=== PATIENT | female | born 1985 | race Caucasian/White ===

== ENCOUNTER 2016-04-17 16:31 | Emergency (ER) | payer OTHER ==
[~2016-04-17] VITALS: Ht 157.5 cm; Wt 116.6 kg
[2016-04-17 16:50] VITALS: BP 120/90
[2016-04-17] MEDS ORDERED: IBUP-1007 PO (17:13)
--- NOTE | 2016-04-17 17:13 | PHYS DOC ---
Past Medical History Past Medical History: Asthma Additional Past Medical Histor: poor dental care Past Surgical History: No Surgical History Smoking: Less than 1pk/day Alcohol Use: None Drug Use: None Adult General Chief Complaint Chief Complaint: WRIST PAIN HPI HPI Patient is a 31 year old female who presents with right wrist pain starting yesterday. She reports that she was carrying a box of books and the right wrist was pinned between the box and the wall. She denies numbness or tingling in the fingers. She does not have a PCP. Review of Systems Review of Systems Constitutional: Denies fever or chills. [] Musculoskeletal: Reports right wrist pain. Integument: Denies rash or skin lesions. [] Neurologic: Denies focal weakness or sensory changes. [] Allergies Allergies Allergies Coded Allergies Type Severity Reaction Last Updated Verified No Known Drug Allergies 08/06/14 No Physical Exam Physical Exam Constitutional: Well developed, well nourished, no acute distress, non-toxic appearance. [] HENT: Normocephalic, atraumatic, oropharynx moist. [] Eyes: PERRLA, EOMI, conjunctiva normal, no discharge. [] Skin: Warm, dry, no erythema, no rash. There is no laceration, abrasion, ecchymosis, or other external signs of trauma. Extremities: Right distal radius and ulna tenderness, ROM intact, no edema. 2+ radial and ulnar pulses. Less than 2 second capillary refill in the fingers distally. Light touch sensation intact in the fingers distally. There is no snuffbox tenderness. Neurologic: Alert and oriented X 3, normal motor function, normal sensory function, no focal deficits noted. [] Psychologic: Affect normal, judgement normal, mood normal. [] Current Patient Data Vital Signs Vital Signs Date Time Temp Pulse Resp B/P Pulse Ox O2 Delivery O2 Flow Rate FiO2 04/17/16 16:50 98.2 86 16 98 Room Air 98.2 EKG EKG [] Radiology/Procedures Radiology/Procedures X-ray of the right wrist reviewed and interpreted by myself with Dr. Stern. There are no acute fractures or dislocations. Course & Med Decision Making Course & Med Decision Making Pertinent Labs and Imaging studies reviewed. (See chart for details) Patient presents with right wrist pain starting yesterday. On exam, she has tenderness in the wrist without snuffbox tenderness. She is neurovascularly intact without evidence of compartment syndrome. X-ray does not show any acute fractures or dislocations. She is provided with a Velcro wrist splint prior to discharge. She is discharged home with prescription for ibuprofen 600 mg. She is given contact information for orthopedics for follow-up. Return precautions were discussed. She verbalizes understanding and agrees with plan. Dragon Disclaimer Dragon Disclaimer This electronic medical record was generated, in whole or in part, using a voice recognition dictation system. Departure Departure Impression: Primary Impression: Contusion of wrist, right Disposition: HOME, SELF-CARE Condition: STABLE Referrals: KATJA ODONNELL MD Patient Instructions: Wrist Pain, [id number] Additional Instructions: Your xray did not show any broken bones. Please wear the provided wrist splint as needed for comfort. Please take the prescribed medication as directed. Please follow up with the orthopedic doctor listed below if your pain continues. Return to the emergency department if you have any new or concerning symptoms. Scripts Ibuprofen 600 Mg Heqlas610 Mg PO PRN Q6HRS PRN INFLAMMATION #20 TAB Prov:YOUSUF REYES 04/17/16 YOUSUF REYES Apr 17, 2016 17:13
--- NOTE | 2016-04-18 08:45 | RAD ---
Right wrist, 2 views, 04/17/2016: History: Injury, wrist pain No fracture or dislocation is identified. There is moderate soft tissue swelling about the wrist. IMPRESSION: No acute bony abnormality is detected.
== END 2016-04-17 17:19 | disposition home or self-care (01) ==
LOC: ER 16:31
DX: S60.211A Contusion of right wrist, initial encounter (principal); J45.909 Unspecified asthma, uncomplicated; F17.200 Nicotine dependence, unspecified, uncomplicated; W22.8XXA Striking against or struck by other objects, initial encounter; Y93.89 Activity, other specified; Y92.89 Other specified places as the place of occurrence of the external cause; Y99.8 Other external cause status
CPT/HCPCS: 29125; 73100; 99284-25

== ENCOUNTER 2016-07-10 00:05 | Emergency (ER) | payer OTHER ==
[~2016-07-10 00:05] MED LIST: IBUP-1007 PO
--- NOTE | 2016-07-10 00:17 | PHYS DOC ---
Past Medical History Past Medical History: Asthma Additional Past Medical Histor: poor dental care Past Surgical History: No Surgical History Alcohol Use: None Drug Use: None Adult General Chief Complaint Chief Complaint: ANKLE PROBLEM HPI HPI Patient is a 31 year old female presents emergency department stating that she was trying to help with some family members night when she went to step out of the truck and twisted her left ankle. She states that this happened around 5: 00. She states she's been able to ambulate on the foot although she does have increased pain and discomfort. She has not taken anything for pain. She denies any knee pain or discomfort. Peripheral pulses are 2+ cap refill brisk less than 2 seconds. Review of Systems Review of Systems Constitutional: Denies fever or chills [] Eyes: Denies change in visual acuity, redness, or eye pain [] HENT: Denies nasal congestion or sore throat [] Respiratory: Denies cough or shortness of breath [] Cardiovascular: No additional information not addressed in HPI [] GI: Denies abdominal pain, nausea, vomiting, bloody stools or diarrhea [] : Denies dysuria or hematuria [] Musculoskeletal: Denies back pain. C/o left ankle pain and discomfort Integument: Denies rash or skin lesions [] Neurologic: Denies headache, focal weakness or sensory changes [] Endocrine: Denies polyuria or polydipsia [] Current Medications Current Medications Current Medications Medications (Trade) Dose Ordered Sig/[facility] Start Time Stop Time Status Last Admin Dose Admin Ibuprofen (Motrin) 800 mg 1X ONCE 07/10/16 00:30 07/10/16 00:31 Allergies Allergies Allergies Coded Allergies Type Severity Reaction Last Updated Verified No Known Drug Allergies 08/06/14 No Physical Exam Physical Exam Constitutional: Well developed, well nourished, no acute distress, non-toxic appearance. [] HENT: Normocephalic, atraumatic, bilateral external ears normal, oropharynx moist, no oral exudates, nose normal. [] Eyes: PERRLA, EOMI, conjunctiva normal, no discharge. [] Neck: Normal range of motion, no tenderness, supple, no stridor. [] Cardiovascular:Heart rate regular rhythm Lungs & Thorax: no respiratory distress Skin: Warm, dry, no erythema, no rash. [] Back: No tenderness Extremities: Left lateral ankle tenderness, no cyanosis, no clubbing, ROM intact , no edema. Full pulses 2+ cap refill brisk less than 2 seconds. Patient able to move her toes without difficulty. Neurologic: Alert and oriented X 3, normal motor function, normal sensory function, no focal deficits noted. [] Psychologic: Affect normal, judgement normal, mood normal. [] Current Patient Data Vital Signs Vital Signs Date Time Temp Pulse Resp B/P Pulse Ox O2 Delivery O2 Flow Rate FiO2 07/10/16 00:20 97.9 90 16 100 Room Air 97.9 EKG EKG [] Radiology/Procedures Radiology/Procedures [] Course & Med Decision Making Course & Med Decision Making Pertinent Labs and Imaging studies reviewed. (See chart for details) X-rays were negative for any fractures or bony abnormalities per . She will be discharged home with recommendations for ice packs and elevation as much as possible. She'll be provided with an Aries wrap in which she was recommended to wear for the next 5-7 days and Air-Stirrup splint for the next 7- 10 days. She is provided with orthopedic name and number to follow up with. Signs symptoms to return back to emergency department been provided. Recommended Tylenol and ibuprofen for pain and discomfort. Also instructed patient when taking ibuprofen to take this with food as it may cause GI upset. If this should occur stopped taking the medication. Patient agrees with discharge instructions treatment regimens and follow-up are conditions. [] Dragon Disclaimer Dragon Disclaimer This electronic medical record was generated, in whole or in part, using a voice recognition dictation system. Departure Departure Impression: Primary Impression: Left ankle sprain Disposition: 01 HOME, SELF-CARE Condition: STABLE Referrals: NO PCP (PCP) MICHELLE CHAIREZ MD Patient Instructions: Ankle Sprain, [id number] Additional Instructions: Your ankle x-rays were negative for any bony abnormalities. Tylenol or ibuprofen for pain and discomfort. When taking ibuprofen please take with food to prevent stomach upset. If he did develop an upset stomach please stop taking ibuprofen. Ice packs on 20 minutes off 20 minutes several times a day. Elevation as much as possible. Wear the Aries wrap for the next 5-7 days. With the Air-Stirrup splint for the next 7-10 days. Follow-up with orthopedic in the next 7-10 days. Return back to emergency prior signs symptoms of become worse. JEN HOLLINS BACKBREAKER Jul 10, 2016 00:17
[2016-07-10 00:20] VITALS: BP 103/58
[2016-07-10] MEDS ORDERED: IBUPROFEN 800 MG TABLET. PO ONE (00:30)
--- NOTE | 2016-07-10 08:10 | RAD ---
ANKLE LEFT 3V Clinical Indication: left ankle pain after twisting injury Comparison: None. Technique: Frontal, oblique and lateral views of the left ankle are obtained. Findings: No acute fracture or dislocation is seen. Ankle mortise is maintained. Surrounding soft tissues demonstrate no acute finding. IMPRESSION: No acute osseous injury seen.
== END 2016-07-10 00:36 | disposition home or self-care (01) ==
LOC: ER 00:05
DX: S93.402A Sprain of unspecified ligament of left ankle, initial encounter (principal); J45.909 Unspecified asthma, uncomplicated; X50.0XXA Overexertion from strenuous movement or load, initial encounter; Y93.89 Activity, other specified; Y92.89 Other specified places as the place of occurrence of the external cause; Y99.8 Other external cause status
CPT/HCPCS: 73610; 99284

== ENCOUNTER 2017-08-15 20:09 | Emergency (ER) | payer OTHER | END 2017-08-15 20:46 | disposition home or self-care (01) | LOC: ER 20:09 | DX: S83.92XA Sprain of unspecified site of left knee, initial encounter (principal); J45.909 Unspecified asthma, uncomplicated; X50.1XXA Overexertion from prolonged static or awkward postures, initial encounter; Y93.89 Activity, other specified; Y92.89 Other specified places as the place of occurrence of the external cause; Y99.8 Other external cause status | CPT/HCPCS: 99282; 99283 ==

== ENCOUNTER 2019-07-16 20:46 | Emergency (ER) | payer OTHER ==
[~2019-07-16] VITALS: Ht 157.5 cm; Wt 210.0 kg
[~2019-07-16 20:46] MED LIST changes: +NAPR-514 PO
[2019-07-16 20:54] VITALS: BP 126/66
--- NOTE | 2019-07-16 21:33 | RAD ---
ANKLE LEFT 3V 07/16/2019 9:01 PM INDICATION: Left ankle pain COMPARISON: 07/10/2016. TECHNIQUE: 3 views the left ankle are provided. FINDINGS/ IMPRESSION: There is no acute fracture or dislocation. Joint spaces are maintained. Bone mineralization is within normal limits. Regional soft tissues are within normal limits. There is no soft tissue gas or osseous erosion. No radiopaque foreign body. Electronically signed by: Kaley Damon MD (07/16/2019 9:30 PM) SANDRA
[2019-07-16] MEDS ORDERED: DICL50TA4 PO (21:37)
--- NOTE | 2019-07-16 21:37 | PHYS DOC ---
Past Medical History Past Medical History: Asthma, Other Additional Past Medical Histor: poor dental care Past Surgical History: Tubal ligation Smoking Status: Former Smoker Alcohol Use: None Drug Use: None General Adult EDM: Chief Complaint: ANKLE PROBLEM HPI: HPI: Patient is a 34 year old female who presents with complaint of left ankle pain after twisting her ankle at home a couple of hours ago. Patient states that she now has significant pain with weightbearing, rating it at an 8 out of 10. She denies any other injuries.[] Review of Systems: Review of Systems: Constitutional: Denies fever or chills. [] Respiratory: Denies cough or shortness of breath. [] Cardiovascular: Denies chest pain or edema. [] Musculoskeletal: Positive left ankle pain. [] Integument: Denies rash. [] Neurologic: Denies headache, focal weakness or sensory changes. [] Heart Score: Risk Factors: Risk Factors: DM, Current or recent (<one month) smoker, HTN, HLP, family history of CAD, obesity. Risk Scores: Score 0 - 3: 2.5% MACE over next 6 weeks - Discharge Home Score 4 - 6: 20.3% MACE over next 6 weeks - Admit for Clinical Observation Score 7 - 10: 72.7% MACE over next 6 weeks - Early Invasive Strategies Allergies: Allergies: Allergies Coded Allergies Type Severity Reaction Last Updated Verified No Known Drug Allergies 08/06/14 No Physical Exam: PE: Constitutional: Well developed, well nourished, no acute distress, non-toxic appearance. [] Cardiovascular: Regular rate and rhythm[] Lungs & Thorax: Bilateral breath sounds clear to auscultation [] Skin: Warm, dry, no erythema, no rash. [] Extremities: Examination of left ankle demonstrates minimal soft tissue swelling around the lateral malleolus with tenderness to palpation over lateral malleolus as well as along the course of the posterior talofibular ligament. [] Current Patient Data: Vital Signs: Vital Signs Date Time Temp Pulse Resp B/P (MAP) Pulse Ox O2 Delivery O2 Flow Rate FiO2 07/16/19 20:54 98.7 116 16 126/66 (86) 97 98.7 EKG: EKG: [] Radiology/Procedures: Radiology/Procedures: [] Impression: PROCEDURE: ANKLE LEFT 3V ANKLE LEFT 3V 07/16/2019 9:01 PM INDICATION: Left ankle pain COMPARISON: 07/10/2016. TECHNIQUE: 3 views the left ankle are provided. FINDINGS/ IMPRESSION: There is no acute fracture or dislocation. Joint spaces are maintained. Bone mineralization is within normal limits. Regional soft tissues are within normal limits. There is no soft tissue gas or osseous erosion. No radiopaque foreign body. Electronically signed by: Kaley Damon MD (07/16/2019 9:30 PM) [facility] Course & Med Decision Making: Course & Med Decision Making Pertinent Labs and Imaging studies reviewed. (See chart for details) [] Dragon Disclaimer: Dragon Disclaimer: This electronic medical record was generated, in whole or in part, using a voice recognition dictation system. Departure Departure Impression: Primary Impression: Left ankle sprain Qualified Codes: S93.402A - Sprain of unspecified ligament of left ankle, initial encounter Disposition: HOME, SELF-CARE Condition: STABLE Referrals: NO PCP (PCP) Patient Instructions: Ankle Sprain Scripts Diclofenac Sodium (DICLOFENAC SODIUM) 50 Mg Tablet.dr 1 TAB PO BID PRN for PAIN, #20 TAB Prov: KYRIE LAYTON Jr. DO 07/16/19 KYRIE LAYTON Jr. DO Jul 16, 2019 21:37
[2019-07-16] MEDS ORDERED: traMADol 50 MG TABLET PO ONE (21:45)
== END 2019-07-16 22:43 | disposition home or self-care (01) ==
LOC: ER 20:46
DX: S93.402A Sprain of unspecified ligament of left ankle, initial encounter (principal); J45.909 Unspecified asthma, uncomplicated; Z87.891 Personal history of nicotine dependence; X50.9XXA Other and unspecified overexertion or strenuous movements or postures, initial encounter; Y93.89 Activity, other specified; Y92.89 Other specified places as the place of occurrence of the external cause; Y99.8 Other external cause status
CPT/HCPCS: 73610; 99284

== ENCOUNTER 2020-10-13 22:48 | Emergency (ER) | payer OTHER ==
[~2020-10-13] VITALS: Ht 157.5 cm; Wt 118.1 kg
[~2020-10-13 22:48] MED LIST changes: +DICL50TA4 PO
[2020-10-13 22:53] VITALS: BP 140/80
--- NOTE | 2020-10-13 23:35 | PHYS DOC ---
Past Medical History Past Medical History: Asthma, Other Additional Past Medical Histor: poor dental care Past Surgical History: Tubal ligation Smoking Status: Former Smoker Alcohol Use: Rarely Drug Use: None General Adult EDM: Chief Complaint: HAND PROBLEM HPI: HPI: Patient is a 35 year old presents emergency department with complaint of right hand and wrist pain after trying to cut self from falling approximately an hour ago, patient states that her right hand and wrist hit against the wall just above the hand railing however she did not fall down any steps. Patient reports a 10 out of 10 pain. Patient denies numbness or tingling to her right upper extremity. Patient states she has not taken any medications for her pain. Patient denies any allergies to medications, states she takes no prescription medications at home. Patient reports her last mental cycle was approximately 2 weeks ago. Patient denies any other physical complaints or physical concerns. Review of Systems: Review of Systems: 14 body systems of review of systems have been reviewed. See HPI for pertinent positives and negative responses, otherwise all other systems are negative, nonpertinent or noncontributory. Constitutional: Negative except as outlined in HPI above. Skin: Negative except as outlined in HPI above. Eyes: Negative except as outlined in HPI above. HENT: Negative except as outlined in HPI above. Respiratory: Negative except as outlined in HPI above. Cardiovascular: Negative except as outlined in HPI above. GI: Negative except as outlined in HPI above. : Negative except as outlined in HPI above. Musculoskeletal: Negative except as outlined in HPI above. Integument: Negative except as outlined in HPI above. Neurologic: Negative except as outlined in HPI above. Endocrine: Negative except as outlined in HPI above. Lymphatic: Negative except as outlined in HPI above. Psychiatric: Negative except as outlined in HPI above. Heart Score: C/O Chest Pain: No Risk Factors: Risk Factors: DM, Current or recent (<one month) smoker, HTN, HLP, family history of CAD, obesity. Risk Scores: Score 0 - 3: 2.5% MACE over next 6 weeks - Discharge Home Score 4 - 6: 20.3% MACE over next 6 weeks - Admit for Clinical Observation Score 7 - 10: 72.7% MACE over next 6 weeks - Early Invasive Strategies Current Medications: Current Medications Medications (Trade) Dose Ordered Sig/[facility] Start Time Stop Time Status Last Admin Dose Admin Acetaminophen/ Hydrocodone Bitart (Lortab 10/325) 1 tab 1X ONCE 10/13/20 23:45 10/13/20 23:46 UNV Ibuprofen (Motrin) 600 mg 1X ONCE 10/13/20 23:45 10/13/20 23:46 UNV Allergies: Allergies: Allergies Coded Allergies Type Severity Reaction Last Updated Verified No Known Drug Allergies 08/06/14 No Physical Exam: PE: Constitutional: Well developed, well nourished, no acute distress, non-toxic appearance. 35-year-old female in no apparent distress. Patient is complaint of pain exceeds patient's physical presentation in appearance. HENT: Normocephalic, atraumatic. Eyes: Conjunctiva normal, no discharge. Neck: Normal range of motion, no stridor. Cardiovascular: No cyanosis appreciated, distal cap refill less than 2 seconds. Lungs & Thorax: Patient is in no respiratory distress, no audible adventitious lung sounds appreciated. Abdomen: Nontender, no abnormalities noted. Skin: Warm, dry, no erythema, no rash. Back: No tenderness, no deformities. Extremities: No tenderness, no cyanosis, no clubbing, ROM intact, no edema. Except for right wrist and hand, patient complains of pain to palpation, limited passive range of motion of finger joints and wrist joint related to patient's complaint of pain, no crepitus appreciated, no swelling appreciated, no contusions or bruising appreciated, distal cap refill less than 2 seconds, no loss of sensation. 2+ radial pulse of the right hand. Skin is intact. Neurologic: Alert and oriented X 3, normal motor function, normal sensory function, no focal deficits noted. Psychologic: Affect normal, judgement normal, mood normal. Current Patient Data: Vital Signs: Vital Signs Date Time Temp Pulse Resp B/P (MAP) Pulse Ox O2 Delivery O2 Flow Rate FiO2 10/13/20 22:53 98.8 98 16 140/80 (86) 97 Room Air 98.8 EKG: EKG: [] Radiology/Procedures: Radiology/Procedures: PATIENT: RIA MOELLER ACCOUNT: [id number] : 1985 LOCATION: ER AGE: 35 SEX: F EXAM STATUS: REG ER ORD. PHYSICIAN: LEILA ROMERO APRN REASON: fall PROCEDURE: WRIST 3V RIGHT XR HAND_RIGHT 3 VIEWS, XR RT WRIST 3VIEWS DATE: 10/13/2020 11:36 PM INDICATION: pain, fall COMPARISON: None. FINDINGS: Bones: There is no evidence of acute fracture or dislocation. Joints: The joint spaces are normal. Miscellaneous: None. IMPRESSION: No evidence of acute fracture. Electronically signed by: Scar Maldonado MD (10/13/2020 11:55 PM) [facility] DICTATED and SIGNED BY: SCAR MALDONADO MD DATE: 10/13/20 [id number] 0 Course & Med Decision Making: Course & Med Decision Making Pertinent Labs and Imaging studies reviewed. (See chart for details) 35-year-old female, vital signs reviewed, presents emergency department complaining of right wrist and hand pain after reporting she caught herself before falling down steps. Physical examination unremarkable, however patient's complaint of severe pain will order x-ray of right hand and right wrist. Ice pack application, order oral pain medication. X-ray negative for acute process, no fracture appreciated as interpreted by house radiologist, discussed findings with patient, will place in Velcro wrist splint, continue ice packs 30 minutes on 30 minutes off while awake for the next 48 to 72 hours. Patient states pain relief with oral medications given. Patient gave verbal understanding of discharge home instructions, follow-up with PCP this week, return to ER precautions and concerns, contusion care at home, patient is hemodynamically stable, and nontoxic in appearance, in no apparent distress at dispo time, patient discharged home without incident. Alejandro Disclaimer: Alejandro Disclaimer: This electronic medical record was generated, in whole or in part, using a voice recognition dictation system. Departure Departure Impression: Primary Impression: Contusion of right hand Qualified Codes: S60.221A - Contusion of right hand, initial encounter Additional Impression: Contusion of right wrist Qualified Codes: S60.211A - Contusion of right wrist, initial encounter Disposition: HOME / SELF CARE / HOMELESS Condition: GOOD Referrals: NO PCP (PCP) Patient Instructions: Contusion Additional Instructions: You were seen today in emergency department for pain of your right wrist and hand after trying to catch self from falling. X-rays were performed, there were no broken bones seen on the x-rays as reported by our house radiologist interpretation. I am treating you with ice pack applications 30 minutes on and 30 minutes off while awake for the next 48 to 72 hours, you may use [id number] Tylenol and/or Motrin for ongoing pain, a Velcro wrist splint was placed for comfort, you may remove after a few days if feeling better. Please follow-up with your primary care physician for ongoing aches and pains. Thank you for visiting our Emergency Department. It was a pleasure taking care of you today in the emergency department and we appreciate you trusting us with your care. If any additional problems come up don't hesitate to return to visit us. Please follow up with your primary care provider so they can plan additional care if needed and know about the problem that you had. If symptoms worsen come back to the Emergency Department. Any concerning symptoms that start such as chest pain, shortness of air, weakness or numbness on one side of the body, running high fevers or any other concerning symptoms return to the ER. EMERGENCY DEPARTMENT GENERAL DISCHARGE INSTRUCTIONS Thank you for coming to [facility] Emergency Department (ED) today and trusting us with you care. We trust that you had a positive experience in our Emergency Department. If you wish to speak to the department management, you may call the Director at [phone]. YOUR FOLLOW UP INSTRUCTIONS ARE FOLLOWS: 1. Do you have a private Doctor? If you do not have a private doctor, please ask for a resource list of physicians or clinics that may be able to assist you with follow up care. 2. The Emergency Physicain has interpreted your x-rays. The X-Ray specialist will also review them. If there is a change in the findings, you will be notified in 48 hours when at all possible. 3. A lab test or culture has been done, your results will be reviewed and you will be notified if you need a change in treatment. ADDITIONAL INSTRUCTIONS AND INFORMATION: 1. Your care today has been supervised by a physician who is specially trained in emergency care. Many problems require more than one evaluation for a complete diagnosis and treatment. We recommend that you schedule your follow up appointment as recommended to ensure complete treatment of you illness or injury. If you are unable to obtain follow up care and continue to have a problem, or if your condition worsens, we recommend that you return to the ED. 2. We are not able to safely determine your condition over the phone nor are we able to give sound medical advice over the phone. For these safety reasons, if you call for medical advice we will ask you to come to the ED for further evaluation. 3. If you have any questions regarding these discharge instructions please call the ED at [phone]. SAFETY INFORMATION: In the interest of safety, wellness, and injury prevention; we encourage you to wear your sealbelt, if you smoke; quite smoking, and we encourage family to use a protective helmet for bicycling and other sporting events that present an increased risk for head injury. IF YOUR SYMPTOMS WORSEN OR NEW SYMPTOMS DEVELOP, OR YOU HAVE CONCERNS ABOUT YOUR CONDITION; OR IF YOUR CONDITION WORSENS WHILE YOU ARE WAITING FOR YOUR FOLLOW UP APPOINTMENT; EITHER CONTACT YOUR PRIMARY CARE DOCTOR, THE PHYSICIAN WHOSE NAME AND NUMBER YOU WERE GIVEN, OR RETURN TO THE ED IMMEDIATELY. Scripts Ibuprofen (IBUPROFEN) 600 Mg Tablet 600 MG PO PRN Q6HRS PRN for INFLAMMATION, #30 TAB 0 Refills Prov: LEILA ROMERO APRN 10/14/20 LEILA ROMERO APRN Oct 13, 2020 23:35
[2020-10-13] MEDS ORDERED: HYDROcodone/APAP 10/325 1 TAB TABLET PO ONE (23:45)
[2020-10-13] MEDS ORDERED: IBUPROFEN 200 MG TABLET. PO ONE (23:45)
--- NOTE | 2020-10-13 23:57 | RAD ---
XR HAND_RIGHT 3 VIEWS, XR RT WRIST 3VIEWS DATE: 10/13/2020 11:36 PM INDICATION: pain, fall COMPARISON: None. FINDINGS: Bones: There is no evidence of acute fracture or dislocation. Joints: The joint spaces are normal. Miscellaneous: None. IMPRESSION: No evidence of acute fracture. Electronically signed by: Lazaro Quiñones MD (10/13/2020 11:55 PM) [facility]
--- NOTE | 2020-10-13 23:57 | RAD ---
XR HAND_RIGHT 3 VIEWS, XR RT WRIST 3VIEWS DATE: 10/13/2020 11:36 PM INDICATION: pain, fall COMPARISON: None. FINDINGS: Bones: There is no evidence of acute fracture or dislocation. Joints: The joint spaces are normal. Miscellaneous: None. IMPRESSION: No evidence of acute fracture. Electronically signed by: Lazaro Quiñones MD (10/13/2020 11:55 PM) [facility]
[2020-10-14] MEDS ORDERED: IBUP-1007 PO (00:30)
== END 2020-10-14 00:36 | disposition home or self-care (01) ==
LOC: ER 22:48
DX: S60.221A Contusion of right hand, initial encounter (principal); S60.211A Contusion of right wrist, initial encounter; J45.909 Unspecified asthma, uncomplicated; Z87.891 Personal history of nicotine dependence; W10.8XXA Fall (on) (from) other stairs and steps, initial encounter; Y93.89 Activity, other specified; Y92.89 Other specified places as the place of occurrence of the external cause; Y99.8 Other external cause status
CPT/HCPCS: 29125; 73110; 73130; 99284